=== PATIENT | female | born 1985 | race Caucasian/White ===

== ENCOUNTER 2019-07-16 04:51 | Inpatient (IN) | payer MEDICAID ==
[~2019-07-16] VITALS: Ht 165.1 cm; Wt 122.7 kg
[2019-07-16 06:32] LABS: Basophils # (auto) 0 uL; Basophils % (auto) 0.3 % (0.0-2.0); Eosinophils # (auto) 0.1 uL; Hematocrit 44.4 % (36.0-46.0); Hemoglobin 15.3 g/dL (12.2-16.2); Lymphocytes % (auto) 6.9 % (10.0-50.0); Mean Corpuscular Hgb Conc. 34.4 g/dL (32.0-36.0); Mean Corpuscular Volume 95.9 fL (80.0-100.0); Monocytes # (auto) 0.6 uL; Monocytes % (auto) 4.1 % (0.0-12.0); Neutrophils # (auto) 12.7 uL; Neutrophils % (auto) 87.7 % (37.0-80.0); Platelet Count (auto) 170 10^3/uL (140-450); Red Blood Cells 4.63 10^6/uL (4.0-5.20); Red Cell Distribution Width 13.1 % (11.8-14.3); White Blood Cell 14.5 10^3/uL (4.4-10.8)
[2019-07-16 06:50] LABS: Albumin 3.9 g/dL (3.4-5.0); BUN/Creatinine Ratio 10.4; Calcium 8.9 mg/dL (8.5-10.1); Potassium 3.9 mmol/L (3.5-5.1)
[2019-07-16 06:52] LABS: Bilirubin, Total 0.8 mg/dL (0.2-1.0); Total Protein 7.9 g/dL (6.4-8.2)
[2019-07-16] MEDS ORDERED: SODIUM CHLORIDE 0.9% 1,000 ML IVB ONE (07:03)
[2019-07-16] MEDS ORDERED: MORPHINE SULFATE 4 MG/ML SYR/VIAL IV ONE (07:15)
[2019-07-16] MEDS ORDERED: ONDANSETRON HCL 4 MG/2 ML VIAL IV ONE (07:15)
[2019-07-16] MEDS ORDERED: HYDROmorphone HCL 2 MG/ML VL IV ONE (08:30)
[2019-07-16] MEDS ORDERED: KETOROLAC TROMETH 30 MG/ML 1ML VIAL IV ONE (08:30)
[2019-07-16 09:05] LABS: Urine Bacteria MANY /hpf (None Seen); Urine Blood 1+ /uL (Negative); Urine Budding Yeast OCCASIONAL /hpf (None Seen); Urine Mucus FEW (None Seen); Urine Specific Gravity 1.012 (1.001-1.035); Urine WBC 88 /hpf (0 - 5)
[2019-07-16] MEDS ORDERED: cefTRIAXone 1GM/50ML D5W 50 ML IV ONE (09:30)
[2019-07-16] MEDS ORDERED: NITROGLYCERIN 0.4 MG SL TAB SL PRN (10:30)
[2019-07-16] MEDS ORDERED: MORPHINE SULF INJ 2 MG/ML SYRINGE 1ML IV PRN (10:30)
[2019-07-16] MEDS ORDERED: ALBUTEROL SULF 2.5 MG/0.5ML(0.5%) NEB SOLN NEB PRN (10:30)
[2019-07-16] MEDS ORDERED: DEXTROSE (50%) 50ML SYRG IV PRN (10:30)
[2019-07-16] MEDS ORDERED: TEMAZEPAM 15 MG CAP PO PRN (10:30)
[2019-07-16] MEDS: FAMOTIDINE 20 MG TAB PO SCH ×2 (11:23→22:37)
[2019-07-16] MEDS: SODIUM CHLORIDE 0.9% 1,000 ML IV SCH ×2 (11:23→20:19)
--- NOTE | 2019-07-16 11:35 | NUR ---
Telemetry admit from ER EMILY BLACKWELL admitted to Telemetry unit. Patient oriented to primary RN, unit, room, bed, and unit policies regarding patient care and visiting hours. Patient now on continuous telemetry monitoring, tele box # [id number] and telemetry reading on arrival to unit is ST 120. Patient placed on bedside oxygen, weighed by bedscale and encouraged to call if they need something. All questions and concerns addressed, patient verbalized understanding.
[2019-07-16] MEDS: ACCU-CHEK COMFORT CURVE STRIP VI SCH ×3 (12:00→22:37)
[2019-07-16] MEDS: PROMETHAZINE HCL 25 MG/ML 1ML IV PRN ×2 (12:18→17:31)
[2019-07-16] MEDS: KETOROLAC TROMETH 30 MG/ML 1ML VIAL IV PRN ×2 (12:33→22:43)
[2019-07-16 13:00] VITALS: BP 128/84
[2019-07-16] MEDS ORDERED: OMEP20TA PO (13:18)
[2019-07-16 17:00] VITALS: BP 122/73
[2019-07-16] MEDS: ACETAMINOPHEN 500 MG TAB PO PRN (17:29)
[2019-07-16] MEDS: traMADol HCL 50 MG TAB PO PRN (17:50)
--- NOTE | 2019-07-16 17:53 | NUR ---
RT NOTE PT SEEN BY RT TO ASSESS FOR PRN. PT DENIES ANY SOB, NO SIGNS OF RESP DISTRESS NOTED BY RT. CR 115, RR 16, SPO2 94% ON RA. PT ADVISED TO HAVE RT PAGED IF NEEDED. NAME AND PAGER NUMBER ON PT ROOM BOARD.
--- NOTE | 2019-07-16 18:00 | NUR ---
ASSUMED CARE OF PATIENT. RECEIVED REPORT FROM WENDY HAMPTON. PATIENT ROUNDS COMPLETED. PATIENT RESTING WITH EYES CLOSED, NO S/S OF DISTRESS OR SOB. BED LOCKED IN LOWEST POSITION, SIDE RAILS UP X2, CALL LIGHT WITHIN REACH.
--- NOTE | 2019-07-16 18:11 | NUR ---
Provided patient with a cool washcloth and lemon point hope ira soda.
--- NOTE | 2019-07-16 18:31 | NUR ---
Acetaminophen reassessment Oral temperature recheck was 101.2F. Cooling measures put in place: cool washcloth placed on forehead, thermostat adjusted, ice packs placed under arms, socks and all blankets removed.
--- NOTE | 2019-07-16 19:00 | NUR ---
Patient rounds Patient resting in bed, oral temperature was reassessed at 99.3F. No s/s of distress or SOB. Will endorse care to overnight caregiver RN.
--- NOTE | 2019-07-16 19:40 | NUR ---
Opening Shift Note Assumed care of patient, awake and alert. No S/S of distress/SOB or pain. Instructed on POC and to call for assist PRN, will continue to monitor for changes Q1hr and PRN.
[2019-07-16 19:48] VITALS: BP 122/73
[2019-07-16 23:24] VITALS: BP 109/62
[2019-07-17] MEDS: PROMETHAZINE HCL 25 MG/ML 1ML IV PRN ×2 (01:15→18:56)
[2019-07-17] MEDS: ACETAMINOPHEN 500 MG TAB PO PRN ×2 (04:07→12:37)
[2019-07-17 05:06] LABS: Basophils # (auto) 0 uL; Basophils % (auto) 0.3 % (0.0-2.0); Eosinophils # (auto) 0 uL; Eosinophils % (auto) 0.2 % (0.0-7.0); Hematocrit 39.2 % (36.0-46.0); Hemoglobin 13.4 g/dL (12.2-16.2); Lymphocytes # (auto) 1.2 uL; Lymphocytes % (auto) 9.2 % (10.0-50.0); Mean Corpuscular Hgb Conc. 34.1 g/dL (32.0-36.0); Mean Corpuscular Volume 96.7 fL (80.0-100.0); Monocytes # (auto) 0.6 uL; Monocytes % (auto) 4.8 % (0.0-12.0); Neutrophils # (auto) 10.9 uL; Neutrophils % (auto) 85.5 % (37.0-80.0); Platelet Count (auto) 126 10^3/uL (140-450); Red Blood Cells 4.06 10^6/uL (4.0-5.20); White Blood Cell 12.7 10^3/uL (4.4-10.8)
[2019-07-17 05:35] VITALS: BP 131/84
[2019-07-17] MEDS: ACCU-CHEK COMFORT CURVE STRIP VI SCH ×4 (06:51→22:51)
[2019-07-17] MEDS: SODIUM CHLORIDE 0.9% 1,000 ML IV SCH ×3 (06:51→23:01)
[2019-07-17] MEDS: cefTRIAXone 1GM/50ML D5W 50 ML IV SCH (08:49)
[2019-07-17] MEDS: KETOROLAC TROMETH 30 MG/ML 1ML VIAL IV PRN ×3 (08:49→22:50)
--- NOTE | 2019-07-17 08:49 | NUR ---
Patient stated her pain level at 7/10 at this time. Toradol Inj 15 mg given for pain as ordered.
[2019-07-17 09:00] VITALS: BP 136/84
[2019-07-17] MEDS: FAMOTIDINE 20 MG TAB PO SCH ×2 (10:40→22:51)
--- NOTE | 2019-07-17 10:50 | NUR ---
Dr. Paniagua came over. to put in discharge orders.
--- NOTE | 2019-07-17 12:25 | NUR ---
Dr. Paniagua called that patient is not going to be discharged today, he will put in new orders.
--- NOTE | 2019-07-17 12:37 | NUR ---
Tylenol PO given for headache.
[2019-07-17] MEDS ORDERED: DOXYCYCLINE 100MG/250ML 250 ML IV ONE (12:45)
[2019-07-17 13:00] VITALS: BP 155/92
[2019-07-17] MEDS: traMADol HCL 50 MG TAB PO PRN (13:21)
--- NOTE | 2019-07-17 15:36 | NUR ---
Patient stated she's in pain, at 7/10 at this time. Ketorolac Inj 15 mg given for pain as ordered.
[2019-07-17 17:00] VITALS: BP 119/73
--- NOTE | 2019-07-17 18:27 | NUR ---
Patient walking to the bathroom.
--- NOTE | 2019-07-17 18:56 | NUR ---
Phenergan Inj 12.5 mg given for nausea.
[2019-07-17] MEDS: ALBUTEROL SULF 2.5 MG/0.5ML(0.5%) NEB SOLN NEB SCH (19:16)
[2019-07-17] MEDS: IPRATROPIUM BROM 0.5 MG/2.5ML INH SOL NEB SCH (19:16)
[2019-07-17] MEDS: DOXYCYCLINE 100MG/250ML 250 ML IV SCH (23:10)
[2019-07-18] MEDS: ALBUTEROL SULF 2.5 MG/0.5ML(0.5%) NEB SOLN NEB SCH ×2 (00:42→07:19)
[2019-07-18] MEDS: IPRATROPIUM BROM 0.5 MG/2.5ML INH SOL NEB SCH ×2 (00:42→07:19)
[2019-07-18 00:51] VITALS: BP_SYST 113; BP_DIAS 69; BP_DIAS 73
[2019-07-18] MEDS: traMADol HCL 50 MG TAB PO PRN ×2 (04:27→12:56)
[2019-07-18] MEDS: PROMETHAZINE HCL 25 MG/ML 1ML IV PRN (05:20)
[2019-07-18 05:37] VITALS: BP 111/63
[2019-07-18 07:12] LABS: Basophils # (auto) 0 uL; Basophils % (auto) 0.2 % (0.0-2.0); Eosinophils # (auto) 0.1 uL; Eosinophils % (auto) 0.7 % (0.0-7.0); Hemoglobin 12.2 g/dL (12.2-16.2); Lymphocytes # (auto) 1.1 uL; Lymphocytes % (auto) 13.2 % (10.0-50.0); Mean Corpuscular Hemoglobin 33.4 pg (28.0-32.0); Mean Corpuscular Hgb Conc. 34.7 g/dL (32.0-36.0); Monocytes # (auto) 0.5 uL; Monocytes % (auto) 6.3 % (0.0-12.0); Neutrophils # (auto) 6.6 uL; Neutrophils % (auto) 79.6 % (37.0-80.0); Platelet Count (auto) 109 10^3/uL (140-450); Red Blood Cells 3.65 10^6/uL (4.0-5.20); Red Cell Distribution Width 13.1 % (11.8-14.3); White Blood Cell 8.2 10^3/uL (4.4-10.8)
[2019-07-18] MEDS: ACCU-CHEK COMFORT CURVE STRIP VI SCH ×3 (07:20→17:00)
[2019-07-18] MEDS: SODIUM CHLORIDE 0.9% 1,000 ML IV SCH ×2 (07:22→13:04)
[2019-07-18 07:28] LABS: Albumin 2.5 g/dL (3.4-5.0); Calcium 7.8 mg/dL (8.5-10.1); Magnesium 2.1 mg/dL (1.6-2.6)
[2019-07-18 07:31] LABS: BUN/Creatinine Ratio 7.2
[2019-07-18 07:33] LABS: Bilirubin, Total 0.5 mg/dL (0.2-1.0); Total Protein 6.1 g/dL (6.4-8.2)
[2019-07-18 07:45] LABS: Potassium 2.8 mmol/L (3.5-5.1)
--- NOTE | 2019-07-18 07:59 | NUR ---
NOTIFIED OF CRITICAL POTASSIUM VALUE OF 2.8. CALLED HOSPITALIST. ORDERS RECEIVED. WILL PLACE AND CARRY OUT.
[2019-07-18] MEDS ORDERED: POTASSIUM CHL 20 Meq TABLET PO ONE ×2 (08:00→10:15)
[2019-07-18] MEDS: cefTRIAXone 1GM/50ML D5W 50 ML IV SCH (08:13)
--- NOTE | 2019-07-18 08:21 | NUR ---
OPENING SHIFT NOTE ASSUMED CARE OF PATIENT. PATIENT IS SLEEPING COMFORTABLY IN BED. NO SIGNS OF DISTRESS NOTED. INSTRUCTED ON POC AND TO CALL FOR HELP PRN. BED IS IN LOWEST POSITION. SIDE RAILS UP X2. WILL CONTINUE TO MONITOR.
[2019-07-18 08:51] VITALS: BP 123/70
[2019-07-18] MEDS: FAMOTIDINE 20 MG TAB PO SCH (10:11)
[2019-07-18] MEDS: DOXYCYCLINE 100MG/250ML 250 ML IV SCH (10:12)
[2019-07-18] MEDS: KETOROLAC TROMETH 30 MG/ML 1ML VIAL IV PRN (10:13)
[2019-07-18] MEDS ORDERED: CIP500T PO (11:21)
[2019-07-18] MEDS ORDERED: ALBUAER3 IN (11:21)
[2019-07-18] MEDS ORDERED: POTASSIUM CHLORIDE 20 MEQ, LIDOCAINE 1% (LOCAL ANESTH.) 2 ML in SODIUM CHL 0.9% 100 ML IV ONE (11:30)
[2019-07-18 13:30] VITALS: BP 127/80
[2019-07-18 16:17] VITALS: BP 127/80
[2019-07-18 17:00] VITALS: BP 125/76
--- NOTE | 2019-07-18 17:30 | NUR ---
DISCHARGE Discharge instructions given as ordered. Encourage to follow up with PCP as instructed. All questions and concerns addressed. Patient verbalized understanding. Medication reconciliation form completed and copy given to patient. IV removed with catheter intact, pressure dressing applied. Telemetry unit returned to ICU. Patient taken to vehicle with all personal belongings, accompanied by staff. No distress noted at time of departure.
== END 2019-07-18 17:30 | disposition home or self-care (01) | DRG 720 ==
LOC: ER 04:51 → TELE 04:52 → TELE-WESTW 11:33
PROVIDERS: ADMIT Internal Medicine; ATTEND Internal Medicine
DX: A41.9 Sepsis, unspecified organism (principal); N28.1 Cyst of kidney, acquired; N12 Tubulo-interstitial nephritis, not specified as acute or chronic; J45.909 Unspecified asthma, uncomplicated; R73.9 Hyperglycemia, unspecified; F17.210 Nicotine dependence, cigarettes, uncomplicated; K42.9 Umbilical hernia without obstruction or gangrene; K44.9 Diaphragmatic hernia without obstruction or gangrene; E66.3 Overweight; E87.6 Hypokalemia; B96.20 Unspecified Escherichia coli [E. coli] as the cause of diseases classified elsewhere; B96.1 Klebsiella pneumoniae [K. pneumoniae] as the cause of diseases classified elsewhere; Z87.440 Personal history of urinary (tract) infections; Z98.51 Tubal ligation status; Z83.3 Family history of diabetes mellitus; Z80.9 Family history of malignant neoplasm, unspecified; Z71.6 Tobacco abuse counseling; Z79.899 Other long term (current) drug therapy
CPT/HCPCS: 36415; 71046; 74176; 80053; 81001; 81025; 82962; 83036; 83690; 83735; 84132; 84439; 84443; 85025; 87040; 87086; 87088; 87186; 94640; 94761; 96361; 96365; 96366; 96375; G0378; J0696; J1885; J2001; J2405; J3490

== ENCOUNTER 2020-04-10 02:52 | Inpatient (IN) | payer MEDICAID ==
[~2020-04-10] VITALS: Ht 167.6 cm; Wt 77.2 kg
[~2020-04-10 02:52] MED LIST: ALBUAER3 IN; CIP500T PO
[2020-04-10] MEDS ORDERED: ONDANSETRON HCL 4 MG/2 ML VIAL IV ONE ×2 (05:00→11:45)
[2020-04-10] MEDS ORDERED: HYDROmorphone HCL 2 MG/ML VL IV ONE ×2 (05:00→11:45)
[2020-04-10] MEDS ORDERED: PIPERACILLIN-TAZOB 3.375GM 100 ML IV ONE (05:00)
[2020-04-10] MEDS ORDERED: cefTRIAXone 1GM/50ML D5W 50 ML IV ONE (05:00)
[2020-04-10] MEDS ORDERED: fentaNYL CITRATE 100 MCG/2 ML VL IV ONE (07:00)
[2020-04-10] MEDS ORDERED: LIDOCAINE 2%HCL (LOCAL ANESTH.) INJ 20ML MDV ID ONE (07:00)
[2020-04-10] MEDS ORDERED: MIDAZOLAM HCL 5 MG/ML-1ML VIAL IV ONE (07:00)
[2020-04-10 08:29] LABS: Basophils # (auto) 0 10 ^3/uL (0-0.2); Basophils % (auto) 0.4 % (0.0-2.0); Eosinophils # (auto) 0.1 10 ^3/uL (0-0.8); Eosinophils % (auto) 0.9 % (0.0-7.0); Hematocrit 41.9 % (36.0-46.0); Hemoglobin 14.1 g/dL (12.2-16.2); Lymphocytes # (auto) 2.3 10 ^3/uL (0.4-5.4); Lymphocytes % (auto) 29.4 % (10.0-50.0); Mean Corpuscular Hemoglobin 32.2 pg (28.0-32.0); Mean Corpuscular Hgb Conc. 33.7 g/dL (32.0-36.0); Mean Corpuscular Volume 95.7 fL (80.0-100.0); Monocytes # (auto) 0.6 10 ^3/uL (0-1.3); Monocytes % (auto) 7.8 % (0.0-12.0); Neutrophils # (auto) 4.9 10 ^3/uL (1.6-8.6); Neutrophils % (auto) 61.5 % (37.0-80.0); Platelet Count (auto) 157 10^3/uL (140-450); Red Blood Cells 4.38 10^6/uL (4.0-5.20); Red Cell Distribution Width 12.8 % (11.8-14.3); White Blood Cell 7.9 10^3/uL (4.4-10.8)
[2020-04-10 08:45] LABS: Albumin 3.4 g/dL (3.4-5.0); BUN/Creatinine Ratio 13.4; Calcium 8.1 mg/dL (8.5-10.1); Potassium 3.2 mmol/L (3.5-5.1)
[2020-04-10 08:48] LABS: Bilirubin, Total 0.6 mg/dL (0.2-1.0); Total Protein 6.9 g/dL (6.4-8.2)
[2020-04-10] MEDS ORDERED: NEOMYCIN-BACITRACIN-POLYM UNITDOSE PKG TOP OINT TOP ONE ×2 (09:05→09:15)
[2020-04-10 10:52] LABS: Urine WBC None Seen /hpf (0 - 5)
[2020-04-10] MEDS ORDERED: ACETAMINOPHEN 325 MG TAB PO ONE (11:15)
[2020-04-10 11:31] LABS: Urine Amorphous Crystal MOD /hpf (None Seen); Urine Bacteria NONE SEEN /hpf (None Seen); Urine Blood Negative /uL (Negative); Urine Specific Gravity 1.036 (1.001-1.035)
[2020-04-10] MEDS ORDERED: MORPHINE SULF INJ 2 MG/ML SYRINGE 1ML IV PRN (12:15)
[2020-04-10] MEDS ORDERED: POTASSIUM EFFERVESENT TAB 25 MEQ PO ONE (12:15)
[2020-04-10] MEDS ORDERED: ACETAMINOPHEN 325 MG TAB PO PRN (12:15)
[2020-04-10] MEDS ORDERED: DOCUSATE SOD 100 MG CAP PO PRN (12:15)
[2020-04-10] MEDS ORDERED: LORazepam 0.5 MG TAB PO PRN (12:15)
[2020-04-10] MEDS ORDERED: NITROGLYCERIN 0.4 MG SL TAB SL PRN (12:15)
[2020-04-10] MEDS: SODIUM CHLORIDE 0.9% 1,000 ML IV SCH ×2 (12:45→22:11)
[2020-04-10 13:06] LABS: Cholesterol 168 mg/dL (< 200); HDL Cholesterol 36 mg/dL (40-59); LDL Cholesterol 121 mg/dL (< 100); Triglycerides 67 mg/dL (< 150)
[2020-04-10] MEDS: ALUM & MAG HYDROX-SIMETH LIQ(MAALOX) 30 ML PO PRN (14:57)
[2020-04-10] MEDS ORDERED: CLINDAMYCIN 600MG IV 50 ML IV ONE (16:30)
[2020-04-10] MEDS: MORPHINE SULF INJ 2 MG/ML SYRINGE 1ML IV PRN ×2 (17:45→22:31)
[2020-04-10] MEDS: ONDANSETRON HCL 4 MG/2 ML VIAL IV PRN ×2 (17:46→22:30)
[2020-04-10] MEDS: cefTRIAXone 1GM/50ML D5W 50 ML IV SCH (21:32)
--- NOTE | 2020-04-10 21:37 | NUR ---
PATIENT ADMITTED TO UNIT Patient arrived from ER. Patient is A&O X's 4 with no s/s of distress and reports some pain to left inner thigh where incision is at. Educated patient on pain management/ POC and oriented patient to unit: call light/ tv/lights/remote/bathroom and visiting policy. Patient verbalized understanding. Bed is in lowest/locked position with side rails up X's 2 and call light is within reach of patient. Changed dressing to left inner thigh at this time. All questions were answered. Will continue care.
[2020-04-10 22:00] VITALS: BP 118/67
[2020-04-10] MEDS: CLINDAMYCIN 600MG IV 50 ML IV SCH (22:33)
[2020-04-11] VITALS (8 sets, daily range): BP systolic 93–118; BP diastolic 44–73
--- NOTE | 2020-04-11 00:59 | NUR ---
PAGED HOSPITALIST Patient with history of asthma and some wheezing noted. Received call back from MD Hernandez with new orders. Will carry out
[2020-04-11] MEDS ORDERED: methylPREDNISolone SOD SUCC 40 MG/ML VL IV ONE (01:00)
[2020-04-11] MEDS ORDERED: ALBUTEROL SULF 2.5 MG/0.5ML(0.5%) NEB SOLN NEB PRN (01:00)
[2020-04-11] MEDS: TEMAZEPAM 15 MG CAP PO PRN ×2 (01:19→23:09)
[2020-04-11] MEDS: CLINDAMYCIN 600MG IV 50 ML IV SCH (04:59)
[2020-04-11] MEDS: HYDROcodone-ACET 5/325MG TAB PO PRN ×3 (05:00→18:03)
[2020-04-11] MEDS: ONDANSETRON HCL 4 MG/2 ML VIAL IV PRN ×2 (05:17→21:15)
[2020-04-11] MEDS: MORPHINE SULF INJ 2 MG/ML SYRINGE 1ML IV PRN ×3 (06:57→21:16)
[2020-04-11] MEDS: ALUM & MAG HYDROX-SIMETH LIQ(MAALOX) 30 ML PO PRN (06:58)
--- NOTE | 2020-04-11 09:18 | NUR ---
Respiratory note: ASSESSED PT FOR PRN TX. PT IS ALERT AND AWAKE. PT DENIES ANY SOB. B/S ARE DIM. POX 95% ON R/A, HR 76, RR14. NO INDICATION FOR PRN. PT AWARE TO HAVE RT PAGED IF NEEDED.
[2020-04-11] MEDS: cefTRIAXone 1GM/50ML D5W 50 ML IV SCH (09:31)
[2020-04-11] MEDS ORDERED: ENOXAPARIN SOD 40 MG/0.4 ML SYRINGE SC SCH (10:00)
--- NOTE | 2020-04-11 10:40 | NUR ---
WOUND CARE NOTE: WOUND CARE IN TO SEE PATIENT PER WOUND CARE REQUEST. PATIENT ADMITTED TO [facility] FOR SUSPECTED SEPSIS SECONDARY TO ACUTE PYELONEPHRITIS. BEDSIDE NURSE NOTED SKIN INTEGRITY ISSUE UPON ADMIT. PHOTOGRAPHS TAKEN AT THAT TIME FOR REFERENCE. PATIENT LEANNA SCORE IS 21. PATIENT NOTED TO HAVE AN ABSCESS ON THE LEFT INNER THIGH. I&D PERFORMED IN THE ER. MINIMAL SEROSANGUINEOUS DRAINAGE NOTED. OPTIFOAM GENTLE DRESSING APPLIED. RECOMMEND: BID/PRN DRESSING CHANGE TO LEFT INNER THIGH. SKIN/WOUND CARE PLAN. NO FURTHER MONITORING NECESSARY BY WOUND CARE TEAM. Addendum: 04/11/20 at 1511 by FRED GÓMEZ RN RN Amended: Links added.
--- NOTE | 2020-04-11 12:00 | NUR ---
DR FLORENTINO BEDSIDE WITH PATIENT DISCUSSING PLAN OF CARE. ORDERS RECEIVED AND CARRIED OUT
[2020-04-11] MEDS ORDERED: cefTRIAXone 1GM/50ML D5W 50 ML IV SCH (12:15)
[2020-04-11] MEDS ORDERED: VANCOMYCIN PER PHARMACY 0 MG IV SCH (12:15)
[2020-04-11] MEDS: SODIUM CHLORIDE 0.9% 1,000 ML IV SCH (12:29)
[2020-04-11] MEDS: VANCOMYCIN 1GM/250ML 250 ML IV SCH (14:02)
[2020-04-11] MEDS: IPRATROPIUM BROM 0.5 MG/2.5ML INH SOL NEB PRN (14:40)
--- NOTE | 2020-04-11 19:37 | NUR ---
Respiratory note: NO PRN TX GIVEN AT THIS TIME, NO SOB NOTED. SPO2 95%, HR 67, RR 16.
--- NOTE | 2020-04-11 19:40 | NUR ---
OPENING NOTE Received report from day shift RN. Patient is A&O X's 4 with no s/s of distress and reports no pain. Educated patient on POC and to use call light when in need of assistance. Patient verbalized understanding. Bed is in lowest/locked position with side rails up X's 2 and call light is within reach of patient. Will continue care.
[2020-04-12] MEDS: VANCOMYCIN 1GM/250ML 250 ML IV SCH ×2 (01:40→14:09)
[2020-04-12] MEDS: SODIUM CHLORIDE 0.9% 1,000 ML IV SCH (01:50)
[2020-04-12 05:00] VITALS: BP 88/42
[2020-04-12 06:39] LABS: Basophils # (auto) 0 10 ^3/uL (0-0.2); Basophils % (auto) 0.3 % (0.0-2.0); Eosinophils # (auto) 0.1 10 ^3/uL (0-0.8); Eosinophils % (auto) 1.1 % (0.0-7.0); Hematocrit 39.5 % (36.0-46.0); Hemoglobin 13.6 g/dL (12.2-16.2); Mean Corpuscular Hemoglobin 32.6 pg (28.0-32.0); Mean Corpuscular Hgb Conc. 34.5 g/dL (32.0-36.0); Mean Corpuscular Volume 94.5 fL (80.0-100.0); Monocytes # (auto) 0.5 10 ^3/uL (0-1.3); Monocytes % (auto) 7.6 % (0.0-12.0); Neutrophils # (auto) 3.6 10 ^3/uL (1.6-8.6); Nucleated Red Blood Cells % 0.1 %; Platelet Count (auto) 130 10^3/uL (140-450); Red Blood Cells 4.18 10^6/uL (4.0-5.20); Red Cell Distribution Width 12.5 % (11.8-14.3); White Blood Cell 6.2 10^3/uL (4.4-10.8)
[2020-04-12 07:05] LABS: Potassium 3.6 mmol/L (3.5-5.1)
[2020-04-12 07:28] LABS: Calcium 8.5 mg/dL (8.5-10.1)
--- NOTE | 2020-04-12 08:00 | NUR ---
OPENING SHIFT NOTE ASSUMED CARE OF PATIENT AWAKE AND ALERT. NO S/S OF DISTRESS NOTED. PATIENT HAS A COMPLAINT OF 8/10 ABDOMINAL AND LEFT THIGH PAIN. WILL MEDICATE PER MD ORDER AND MAR. PATIENT UPDATED ON POC FOR THE DAY AND ALL QUESTIONS ANSWERED. BED IS IN LOWEST, LOCKED POSITION WITH SIDE RAILS UP X2 AND CALL LIGHT WITHIN REACH. WILL CONTINUE TO MONITOR Q1H AND PRN.
[2020-04-12 09:15] VITALS: BP 93/52
[2020-04-12] MEDS: cefTRIAXone 1GM/50ML D5W 50 ML IV SCH (09:54)
[2020-04-12] MEDS: MORPHINE SULF INJ 2 MG/ML SYRINGE 1ML IV PRN ×3 (09:55→21:38)
[2020-04-12] MEDS: ONDANSETRON HCL 4 MG/2 ML VIAL IV PRN ×2 (09:55→14:09)
--- NOTE | 2020-04-12 12:15 | NUR ---
WOUND CARE WOUND ASSESSED BY DR FLORENTINO. PACKING REMOVED BY AND NEW DRESSING APPLIED. RECEIVED VERBAL ORDERS TO KEEP PACKING REMOVED, CLEANSE WOUND, AND APPLY OPTIFOAM DAILY/PRN.
[2020-04-12 12:47] VITALS: BP 87/49
[2020-04-12 16:38] VITALS: BP 94/57
[2020-04-12] MEDS: HYDROcodone-ACET 5/325MG TAB PO PRN (18:03)
[2020-04-12 22:00] VITALS: BP 110/68
[2020-04-12] MEDS: TEMAZEPAM 15 MG CAP PO PRN (22:11)
[2020-04-12 22:31] LABS: Urine Bacteria FEW /hpf (None Seen); Urine Blood TRACE /uL (Negative); Urine Mucus FEW (None Seen); Urine WBC 1 /hpf (0 - 5)
[2020-04-12 22:47] LABS: Amphetamine Screen, Urine NEGATIVE (NEGATIVE); Barbiturate Scree,Urine NEGATIVE (NEGATIVE); Benzodiazephine Screen, Urine POSITIVE (NEGATIVE); Cannabinoid Screen, Urine POSITIVE (NEGATIVE); Cocaine Screen, Urine NEGATIVE (NEGATIVE); Opiate Scree,Urine POSITIVE (NEGATIVE); Phencyclidine Screen, Urine NEGATIVE (NEGATIVE)
[2020-04-12] MEDS: IPRATROPIUM BROM 0.5 MG/2.5ML INH SOL NEB PRN (23:03)
--- NOTE | 2020-04-12 23:07 | NUR ---
Respiratory note: AT BEDSIDE TO ASSESS PT FOR PRN TX. PT COMMUNICATES SHE IS HAVING A HARD TIME CATCHING HER BREATH AND BELIEVES SHE IS WHEEZY. MED NEB TX GIVEN VIA MASK. PT TOLERATING WELL. BS ARE FINE WHEEZES IN RIGHT LUNG [place] CLEAR T/O. WILL CONTINUE TO MONITOR PT NEEDED.
[2020-04-13] MEDS: VANCOMYCIN 1GM/250ML 250 ML IV SCH ×2 (02:29→14:00)
[2020-04-13] MEDS: MORPHINE SULF INJ 2 MG/ML SYRINGE 1ML IV PRN (04:02)
[2020-04-13 05:00] VITALS: BP 95/49
--- NOTE | 2020-04-13 07:26 | NUR ---
RT NOTE: NO TX INDICATED AT THIS TIME. NO SIGNS OF RESPIRATORY DISTRESS NOTED. ON RA SPO2 97 HR 61 RR 16. LUNG SOUNDS CLEAR T/O. PT AWARE TO PAGE FOR RESPIRATORY IF NEED FOR TX ARISES. WILL CONTINUE TO MONITOR.
[2020-04-13 09:00] VITALS: BP_SYST 150; BP_SYST 94; BP_DIAS 49; BP_DIAS 79
[2020-04-13 13:00] VITALS: BP 103/59
[2020-04-13] MEDS: cefTRIAXone 1GM/50ML D5W 50 ML IV SCH (14:04)
[2020-04-13 17:00] VITALS: BP 121/73
--- NOTE | 2020-04-13 18:20 | NUR ---
PATIENT DISCHARGED HOME PER MD'S ORDER. PATIENT ALERT, ORIENTED X4 AND AMBULATORY. VERBALIZED UNDERSTANDING OF DISCHARGE SUMMARY, FOLLOW UP AND NEW PRESCRIPTION INSTRUCTIONS. IV DISCONTINUED, PATIENT TOLERATED WELL, NO S/S OF DISTRESS NOTED
== END 2020-04-13 18:26 | disposition home or self-care (01) | DRG 720 ==
LOC: ER 02:53 → TELE 02:54 → TELE-WESTW 21:00 → WEST WING 04-12 10:35
PROVIDERS: ADMIT Hospitalist; ATTEND Internal Medicine
PROC: 0Y9D0ZZ Drainage of Left Upper Leg, Open Approach (ICD-10-PCS; principal; 2020-04-10)
DX: A41.9 Sepsis, unspecified organism (principal); L02.416 Cutaneous abscess of left lower limb; E66.9 Obesity, unspecified; N73.9 Female pelvic inflammatory disease, unspecified; E78.5 Hyperlipidemia, unspecified; J44.9 Chronic obstructive pulmonary disease, unspecified; F17.210 Nicotine dependence, cigarettes, uncomplicated; E87.6 Hypokalemia; R65.20 Severe sepsis without septic shock; Z79.899 Other long term (current) drug therapy; Z83.3 Family history of diabetes mellitus; Z80.9 Family history of malignant neoplasm, unspecified; Z98.51 Tubal ligation status; Z68.26 Body mass index [BMI] 26.0-26.9, adult
CPT/HCPCS: 10060; 36415; 76856; 80048; 80053; 80061; 80202; 80307; 81001; 83036; 83605; 84484; 85025; 87040; 87086; 87205; 94640; 96365; 96366; 96367; 96375; 96376; 99152; 99153; 99291; G0378; J0696; J2250; J2405; J2543; J3490

== ENCOUNTER 2023-11-17 14:03 | Emergency (ER) | payer MEDICAID ==
[~2023-11-17] VITALS: Ht 167.6 cm; Wt 73.5 kg
[2023-11-17] MEDS: MECLIZINE HCL 25 MG TAB PO ONE (14:30)
[2023-11-17 14:45] LABS: Basophils # (auto) 0 10 ^3/uL (0-0.2); Basophils % (auto) 0.4 % (0.0-2.0); Eosinophils # (auto) 0.3 10 ^3/uL (0-0.8); Eosinophils % (auto) 2.1 % (0.0-7.0); Hematocrit 43.2 % (36.0-46.0); Hemoglobin 14.5 g/dL (12.2-16.2); Lymphocytes # (auto) 2.4 10 ^3/uL (0.4-5.4); Lymphocytes % (auto) 19.7 % (10.0-50.0); Mean Corpuscular Hemoglobin 32.3 pg (28.0-32.0); Mean Corpuscular Hgb Conc. 33.6 g/dL (32.0-36.0); Mean Corpuscular Volume 96.1 fL (80.0-100.0); Monocytes # (auto) 0.5 10 ^3/uL (0-1.3); Monocytes % (auto) 3.8 % (0.0-12.0); Neutrophils # (auto) 8.9 10 ^3/uL (1.6-8.6); Nucleated Red Blood Cells % 0.1 %; Red Cell Distribution Width 13.1 % (11.8-14.3); White Blood Cell 12.1 10^3/uL (4.4-10.8)
[2023-11-17 14:54] LABS: Chloride 108 mmol/L (98-107); Potassium 3.8 mmol/L (3.5-5.1); Sodium 138 mmol/L (136-145)
[2023-11-17 14:56] LABS: Anion Gap 6 (5-15); Calcium 9.1 mg/dL (8.5-10.1); Carbon Dioxide 24 mmol/L (20-30)
[2023-11-17 15:01] LABS: BUN/Creatinine Ratio 6.3 (10.0-20.0); Blood Urea Nitrogen 5 mg/dL (9-23); Glucose 106 mg/dL (74-106)
[2023-11-17] MEDS ORDERED: MECL25CH38 PO (15:55)
[2023-11-17] MEDS ORDERED: IBU600T PO (15:55)
[2023-11-17] MEDS ORDERED: AMOX500T3 PO (15:55)
[2023-11-17] MEDS: cefTRIAXone SOD 1,000 MG VL IM ONE (16:00)
[2023-11-17 17:10] VITALS: BP 132/74; PULSE 114; RESP 16; TEMP 98; O2SAT 98
== END 2023-11-17 15:56 | disposition home or self-care (01) ==
LOC: ER 14:03
DX: J02.9 Acute pharyngitis, unspecified (principal); F17.210 Nicotine dependence, cigarettes, uncomplicated; F12.10 Cannabis abuse, uncomplicated; J45.909 Unspecified asthma, uncomplicated; R42 Dizziness and giddiness; Z98.51 Tubal ligation status
CPT/HCPCS: 36415; 80048; 82962; 85025; 93005; J0696

== ENCOUNTER 2024-03-18 02:42 | Emergency (ER) | payer MEDICAID ==
[~2024-03-18] VITALS: Ht 167.6 cm; Wt 71.6 kg
[~2024-03-18 02:42] MED LIST changes: +AMOX500T3 PO; +IBU600T PO; +MECL25CH38 PO
[2024-03-18 04:47] LABS: Urine Bacteria None Seen /hpf (None Seen)
[2024-03-18 05:10] LABS: Urine Blood 1+ /uL (Negative); Urine Clarity Ex.Turbid (Clear); Urine Color Colorless (Yellow); Urine Protein, UAD 1+ (Negative); Urine Urobilinogen Normal (Negative); Urine WBC 1291 /hpf (0 - 5); Urine WBC Clumps PRESENT /hpf (None Seen)
[2024-03-18] MEDS: SODIUM CHLORIDE 0.9% 250 ML IV ONE (06:48)
[2024-03-18] MEDS: KETOROLAC TROMETH 30 MG/ML 1ML VIAL IV ONE (06:55)
[2024-03-18] MEDS: ONDANSETRON HCL 4 MG/2 ML VIAL IV ONE (06:55)
[2024-03-18 07:26] LABS: Basophils # (auto) 0 10 ^3/uL (0-0.2); Basophils % (auto) 0.3 % (0.0-2.0); Eosinophils # (auto) 0.2 10 ^3/uL (0-0.8); Eosinophils % (auto) 1.2 % (0.0-7.0); Hematocrit 40.3 % (36.0-46.0); Hemoglobin 13.7 g/dL (12.2-16.2); Lymphocytes # (auto) 2.2 10 ^3/uL (0.4-5.4); Lymphocytes % (auto) 17.8 % (10.0-50.0); Mean Corpuscular Hemoglobin 32.9 pg (28.0-32.0); Mean Corpuscular Volume 96.9 fL (80.0-100.0); Monocytes # (auto) 0.7 10 ^3/uL (0-1.3); Monocytes % (auto) 5.3 % (0.0-12.0); Neutrophils # (auto) 9.5 10 ^3/uL (1.6-8.6); Neutrophils % (auto) 75.4 % (37.0-80.0); Red Blood Cells 4.16 10^6/uL (4.0-5.20); Red Cell Distribution Width 13.4 % (11.8-14.3); White Blood Cell 12.6 10^3/uL (4.4-10.8)
[2024-03-18 07:44] LABS: Alanine Aminotransferase 55 U/L (7-40); Albumin 3.8 g/dL (3.2-4.8); Alkaline Phosphatase 99 U/L (46-116); Anion Gap 8 (5-15); Aspartate Aminotransferase 31 U/L (13-40); BUN/Creatinine Ratio 10.8 (10.0-20.0); Bilirubin, Total 0.2 mg/dL (0.2-1.0); Blood Urea Nitrogen 9 mg/dL (9-23); Calcium 9.1 mg/dL (8.7-10.4); Carbon Dioxide 24 mmol/L (20-30); Chloride 110 mmol/L (98-107); Glucose 146 mg/dL (74-106); Lipase 26 U/L (12-53); Potassium 3.7 mmol/L (3.5-5.1); Sodium 142 mmol/L (136-145); Total Protein 6.5 g/dL (5.7-8.2)
[2024-03-18] MEDS ORDERED: ZOFR4T PO (08:55)
[2024-03-18] MEDS ORDERED: CIPR-173 PO (08:55)
[2024-03-18] MEDS ORDERED: cefTRIAXone SOD 1,000 MG VL IV ONE (09:00)
[2024-03-18] MEDS: cefTRIAXone 1GM/50ML D5W 50 ML IV ONE (09:50)
[2024-03-18] MEDS: HYDROcodone-ACET 5/325MG TAB PO ONE (10:04)
[2024-03-18 10:34] VITALS: BP 143/93; PULSE 87; RESP 20; TEMP 98.3; O2SAT 100
== END 2024-03-18 10:37 | disposition home or self-care (01) ==
LOC: ER 02:42
DX: N12 Tubulo-interstitial nephritis, not specified as acute or chronic (principal); J45.909 Unspecified asthma, uncomplicated; F17.210 Nicotine dependence, cigarettes, uncomplicated; F12.10 Cannabis abuse, uncomplicated; Z32.02 Encounter for pregnancy test, result negative; Z98.51 Tubal ligation status
CPT/HCPCS: 36415; 74177; 80053; 81001; 81025; 83690; 85025; 87086; 87088; 87186; 96361; 96365; 96375; 99285; J0696; J1885; J2405; J7050; Q9967